=== PATIENT | male | born 1950 | race Caucasian/White ===

== ENCOUNTER 2017-04-19 12:03 | Inpatient (IN) ==
[2017-04-19] MEDS ORDERED: ASPIRIN PO STA (12:12)
[2017-04-19] MEDS ORDERED: CARDIZEM ONE (12:12)
[2017-04-19] MEDS ORDERED: NS 1,000 ML ONE (12:13)
[2017-04-19] MEDS ORDERED: NS 1,000 ML IV ONE ×2 (12:13→15:38)
[2017-04-19] MEDS ORDERED: CARDIZEM IV ONE (12:13)
[2017-04-19] MEDS ORDERED: NEO-SYNEPHRINE IV ONE (12:20)
--- NOTE | 2017-04-19 12:27 | EKG Report ---
Test Performed on : 04/19/2017 12:07:54 PM Test Reason : SOB/CP Blood Pressure : / mmHG Vent. Rate : 144 BPM Atrial Rate : 136 BPM P-R Int : 000 ms QRS Dur : 098 ms QT Int : 348 ms P-R-T Axes : 000 055 219 degrees QTc Int : 538 ms Atrial fibrillation. with rapid ventricular response. ST \T\ T wave abnormality, consider inferolateral ischemia Abnormal ECG When compared with ECG of 31-DEC-2015 06:35, Atrial fibrillation. has replaced Sinus rhythm. Vent. rate has increased BY [address] no longer depressed in Inferior leads ST no longer depressed in Anterior leads Unconfirmed Result
[2017-04-19 12:47] LABS: ALBUMIN 3.8 g/dL (3.5-5.0); CALCIUM 9.1 mg/dL (8.8-10.2); MAGNESIUM 1.7 mg/dL (1.5-2.7); POTASSIUM 4.4 mmol/L (3.5-5.1); TOTAL BILIRUBIN 1.1 mg/dL (0.20-1.00); TOTAL PROTEIN 7.8 g/dL (6.3-8.3)
[2017-04-19 12:51] LABS: INR 1.08 (0.86-1.15); PROTIME 14.3 Seconds (12.1-15.5); PTT PL 33.6 Seconds (22.6-43.9)
[2017-04-19] MEDS ORDERED: NEO-SYNEPHRINE 50 MG in NS 250 ML IV SCH ×2 (13:00→17:45)
[2017-04-19 13:08] LABS: BASO% 0.2 % (0.0-0.8); EOS# 0.08 X1000 (0.0-0.7); EOS% 0.4 % (0.0-10.0); HEMOGLOBIN 14.8 g/dL (14.0-18.0); IMM GRAN# 0.06 X1000 (0.0-0.04); IMM GRAN% 0.3 % (0.0-0.5); LYMPH# 0.98 X1000 (1.2-3.4); MANUAL DIFF NEEDED? YES; MCH 29.6 PG (27-31); MCHC 33.6 g/dL (33-37); MONO# 0.86 X1000 (0.11-0.59); MONO% 4.4 % (1.7-9.3); MPV 9.9 FL (7.4-10.4); NEUT% 89.7 % (42.2-75.2); PLT 226 X1000 (130-400)
--- NOTE | 2017-04-19 13:40 | Diag Imaging Result Doc PS360 ---
CHEST-PORTABLE - 04/19/2017 INDICATION: CP TECHNIQUE: COMPARISON: 12/30/2015 FINDINGS: There are new sternotomy changes. There is ill-defined infiltrate projecting over the cardiac apex probably in the left lower lobe. This is alveolar infiltrate. The right lung is clear. No pneumothorax or pleural effusion. Heart size and pulmonary vascularity is grossly normal. IMPRESSION: Left lower lobe infiltrate suggesting pneumonia. Recommend treatment and follow-up until clear. Electronically signed by Neil Hopkins 04/19/2017 1:38 PM
[2017-04-19 13:42] LABS: LYMPHS 5 % (21-51); MONO 1 % (1-9)
[2017-04-19] MEDS ORDERED: VANCOMYCIN IV PER PHARMACY MISC SCH (13:45)
[2017-04-19] MEDS ORDERED: ZOFRAN IV PRN (13:45)
[2017-04-19] MEDS ORDERED: TYLENOL PO PRN ×2 (13:45)
[2017-04-19] MEDS ORDERED: LOVENOX SUBQ SCH (13:45)
[2017-04-19] MEDS: PROTONIX IV SCH (14:15)
[2017-04-19] MEDS: ROCEPHIN 1 GM/NS 1 GM/50 ML IVPB IV SCH (14:16)
[2017-04-19] MEDS: SODIUM CHLORIDE 0.9% INJ SCH (14:16)
[2017-04-19] MEDS: NS 1,000 ML IV SCH (14:18)
[2017-04-19] MEDS ORDERED: VANCOMYCIN 2,000 MG in NS 500 ML IV ONE (15:00)
[2017-04-19] MEDS ORDERED: LOVENOX SUBQ ONE (16:00)
[2017-04-19] MEDS: HUMALOG DOSE (PARKWAY) SUBQ SCH ×2 (16:50→20:12)
--- NOTE | 2017-04-19 16:52 | CONSULTATION ---
DATE OF CONSULTATION: 04/19/2017 INDICATION FOR THE CONSULTATION: Shortness of breath. HISTORY OF PRESENT ILLNESS: Mr. Newby is a 66-year-old white male with a history of coronary disease and previous bypass. He presented for evaluation of shortness of breath and chest discomfort. This has been over the last 2-3 days or so. The patient is extremely poor historian. He continues to smoke. In addition, he has reported some issues with fluttering in his chest. He has not had any exertional discomfort. All of his symptoms seem to occur at rest as he is a very sedentary patient. He has no bleeding issues. He has no falling issues as long as he is using his cane and walker. PAST MEDICAL HISTORY: Significant for. 1. Coronary disease with history of coronary bypass grafting. This was performed in February 2016 and resulted in a EMMANUEL to the LAD and a vein graft to the PDA. 2. Hypertension. 3. Hyperlipidemia. 4. COPD. 5. Diabetes. 6. Continued tobacco abuse. SOCIAL HISTORY: Continued tobacco abuse. No current alcohol. FAMILY HISTORY: Hypertension. REVIEW OF SYSTEMS: Ten system review of systems is negative except for those mentioned in HPI. PHYSICAL EXAMINATION: Vital signs: He is afebrile. His heart rate is in the 90s to low 100s. Blood pressure 115/72. Generally: No acute distress. HEENT: Oropharynx is moist. Poor dentition. Eye examination shows pink conjunctivae. White sclerae. Neck: Examination shows no obvious thyromegaly or thyroid tenderness. Cardiovascular: He is in irregular rate and rhythm. No murmurs. No S3. He has no lower extremity edema. Chest: Clear to auscultation bilaterally. He has no increased work of breathing. Abdomen: Soft, nontender, nondistended. He has no obvious organomegaly. Skin Exam: Warm and dry throughout without any rashes. Neurological: He seems to be moving all extremities well. Cranial nerves 2-12 are intact without any sensation deficits. PERTINENT DATA: EKG on presentation shows atrial fibrillation, rapid ventricular response, rate of 144 beats per minute. His chest x-ray is suggestive of a left lower lobe infiltrate concerning for possible pneumonia. Laboratory data shows a white count of 19.6, hematocrit 44, platelet count 226,000. INR 1.08. D-dimer 1.10. Sodium 131, potassium 4.4, BUN 26, creatinine is 1.5. ProBNP 3674. Magnesium level 1.7. Cardiac enzymes are negative times multiple sets. ASSESSMENT: 1. Chest discomfort. 2. Atrial fibrillation. PLAN: I would proceed with myocardial perfusion imaging in the morning. If that is unremarkable then likely the next day I would proceed with ANA MARÍA cardioversion. I will make sure the patient is on treatment dose anticoagulation for his atrial fibrillation. Risks, benefits, and alternatives procedure have been explained to the patient and he agrees to proceed. cc: Ronaldo Elizabeth MD
[2017-04-19] MEDS ORDERED: NEO-SYNEPHRINE 50 MG in NS 250 ML IV PRN (17:57)
--- NOTE | 2017-04-19 19:25 | HISTORY AND PHYSICAL ---
PRIMARY CARE PHYSICIAN: Dr. Robin Giordano. CHIEF COMPLAINT: Chest pain. HISTORY OF PRESENTING ILLNESS: This is a 66-year-old male who presents to [facility] with complaints of chest pain. States he is on home O2 at 4 L via nasal cannula. States that when he woke up this morning he felt worse, was also having shortness of breath. Workup in the emergency room showed a white blood cell count of 19.60, a D- dimer of 1.10, a creatinine of 1.5, sodium of 131, had a plasma lactate level of 3.0, a EKG that showed atrial fibrillation with RVR at 144, a chest x-ray that showed a left lower lobe infiltrate suggesting pneumonia. So he was admitted to the intensive care unit for further evaluation and treatment. PAST MEDICAL HISTORY: Coronary artery disease, hypertension, COPD, diabetes type 2, gout and CHF. PAST SURGICAL HISTORY: Of a triple bypass in 2014. FAMILY HISTORY: A mother with CHF. SOCIAL HISTORY: He has a 4 pack per day history of smoking. States now he is down to 4 cigarettes per day. Denies any ETOH or illicit drug use and is currently living alone and disabled. ALLERGIES: He has no known drug allergies. HOME MEDICATIONS: Will have to verify his home medications and restart as appropriate. LABORATORY DATA: Showed a white blood cell count of 19.60, hemoglobin 14.8, hematocrit 44.0, platelets 226,000. PT and INR 14.3 and 1.08 with a D-dimer of 1.10. Sodium 131, potassium 4.4, chloride 95, CO2 20, BUN of 26, creatinine 1.5, glucose 283, magnesium 1.7. ProBNP of 3674 with a plasma lactate of 3. Cardiac enzymes x2 sets have been negative. Chest x-ray showed a left lower lobe infiltrate suggesting pneumonia. EKG on arrival showed atrial fibrillation with RVR at 144. REVIEW OF SYSTEMS: He denied any fever, chills, blurred vision. He was positive for some generalized muscle weakness, chronic shortness of breath and back pain. Denied any coughing. He did have some left-sided chest pain. Denied any abdominal pain, constipation, diarrhea, burning or hurting with urination. PHYSICAL EXAMINATION: VITAL SIGNS: On arrival had a temperature of 99.2 degrees, pulse of 150, respirations 13, blood pressure 140/89, saturating 89% on room air. GENERAL: This is a 66-year-old male lying in the bed and answers questions appropriately. HEENT: Normocephalic and atraumatic. Pupils are equal, round, reactive to light. NECK: Supple. LUNGS: With diminished breath sounds to lower bases otherwise equal lung expansion and chest wall movement. HEART: Irregular rate and rhythm. No murmurs, rubs, or gallops. ABDOMEN: Soft, nontender, nondistended. Bowel sounds are present x4 quadrants. EXTREMITIES: No clubbing, cyanosis, or edema. NEUROLOGICAL: The cranial nerves 2-12 are grossly intact. ASSESSMENT: 1. Atrial fibrillation with rapid ventricular response. 2. Left lower lobe pneumonia. 3. Acute kidney injury. 4. Elevated D-dimer. 5. Dehydration. PLAN: He was admitted to the intensive care unit. It is noted in the emergency room he was given Cardizem 10 mg IV x1, normal saline bolus x1. He was given a now dose of vancomycin and Rocephin in the emergency room. We will place him on a healthy heart diet. We will check an echocardiogram. Consult cardiology. Continue his serial cardiac enzymes. Place on normal saline at 75 mL an hour, Protonix 40 mg IV q.24, again Rocephin 1 gram IV q.24, vancomycin per pharmacy protocol. Recheck CBC, BMP in the a.m. Will also place on DuoNeb q.4-6 hours p.r.n. Once we recheck his CMP in the a.m. creatinine has improved we may be able to do a pulmonary arteriogram otherwise will check a V/Q scan to rule out any PE. Dictated by ADAN Berry for Theo Coleman MD cc: ADAN Berry MD
[2017-04-19] MEDS ORDERED: AMBIEN PO PRN (21:00)
[2017-04-20] MEDS: NS 1,000 ML IV SCH ×2 (05:00→23:25)
[2017-04-20 05:45] LABS: MANUAL DIFF NEEDED? NO
[2017-04-20 06:01] LABS: BASO% 0.2 % (0.0-0.8); EOS# 0.15 X1000 (0.0-0.7); EOS% 1.4 % (0.0-10.0); HEMATOCRIT 35.4 % (42.0-52.0); HEMOGLOBIN 11.7 g/dL (14.0-18.0); IMM GRAN# 0.03 X1000 (0.0-0.04); IMM GRAN% 0.3 % (0.0-0.5); LYMPH# 1.75 X1000 (1.2-3.4); LYMPH% 16.6 % (20.5-51.1); MCH 29.7 PG (27-31); MCHC 33.1 g/dL (33-37); MCV 89.8 FL (81-99); MONO# 0.58 X1000 (0.11-0.59); MONO% 5.5 % (1.7-9.3); MPV 10.3 FL (7.4-10.4); PLT 155 X1000 (130-400); RBC 3.94 XMIL (4.7-6.1)
[2017-04-20 06:19] LABS: AGAP 9; BUN 26 mg/dL (8-22); CALCIUM 7.8 mg/dL (8.8-10.2); CHLORIDE 102 mmol/L (98-107); COSMO 268; MAGNESIUM 1.8 mg/dL (1.5-2.7); SODIUM 131 mmol/L (136-145); TCO2 20 mmol/L (25-35)
[2017-04-20] MEDS: HUMALOG DOSE (PARKWAY) SUBQ SCH ×4 (06:48→20:05)
[2017-04-20] MEDS: ZOFRAN IV PRN (14:29)
[2017-04-20] MEDS ORDERED: LEXISCAN ONE (14:39)
[2017-04-20] MEDS ORDERED: VANCOMYCIN 1,500 MG in NS 250 ML IV SCH (15:00)
[2017-04-20] MEDS: ROCEPHIN 1 GM/NS 1 GM/50 ML IVPB IV SCH (15:30)
--- NOTE | 2017-04-20 15:47 | PROGRESS NOTE ---
DATE: 04/20/2017 SUBJECTIVE: Patient has no complaints. He denies chest pain, shortness of breath, palpitations. OBJECTIVE: Vital Signs: Blood pressure is 132/71 with a heart rate of 86, respirations are 20, temperature is 98.6 degrees with O2 saturations of 98-100% on 2 L nasal cannula 8. HEENT: Head is normocephalic, atraumatic. Pupils equal, round, react to light. EOMs are intact. Sclerae anicteric. Mucous membranes are moist. Neck: Supple. Trachea midline. Cardiovascular: Irregularly irregular rate and rhythm. S1, S2 appreciated. Pulmonary: Breath sounds are clear with no increased work of breathing noted. Gastrointestinal: Abdomen is soft, nontender, nondistended. Bowel sounds in all 4 quadrants. Extremities: No clubbing, cyanosis, or edema. Calves are nontender. Pulses are palpable x4. Neurologic: He is alert and oriented x3. Cranial nerves 2-12 grossly intact. LABS: WBC is 10.5 with hemoglobin 11.7, hematocrit 35.4 and platelets of 155,000. Sodium is 131, potassium 4, BUN 26, creatinine 1.2 with glucose ranging from 107-110. Microbiology. Blood cultures are pending. ASSESSMENT AND PLAN: 1. Atrial fibrillation. 2. Left lower lobe pneumonia. 3. Acute kidney injury. 4. Elevated D-dimer. 5. Dehydration. 6. Diabetes mellitus. 7. Hypertension. We will continue with the current regimen. He is NPO for a Lexiscan today. Further treatment pending results. Dictated by ADAN Washington for Theo Coleman MD cc: ADAN Washington MD
[2017-04-20] MEDS: PROTONIX IV SCH (15:51)
[2017-04-20] MEDS ORDERED: LOVENOX SUBQ SCH (16:00)
--- NOTE | 2017-04-20 16:15 | PROGRESS NOTE ---
DATE: 04/20/2017 SUBJECTIVE: Patient continues without chest discomfort or dyspnea. OBJECTIVE: Vital Signs: Blood pressure 131/72, heart rate 69 with ECG monitor showing atrial fibrillation. Oxygen saturation 98% on 4 L per nasal cannula. Chest: Clear to auscultation bilaterally. Cardiac Examination: Reveals an irregular rate and rhythm without appreciable murmur or gallop. There is no evidence of peripheral edema. LABORATORY DATA: Initial troponin 0.02, follow-up troponin 0.022. Lexiscan sestamibi study is pending. IMPRESSION: 1. Chest discomfort. 2. Atrial fibrillation, duration unknown. 3. Atherosclerotic coronary disease with prior coronary bypass grafting one year ago. 4. Chronic obstructive pulmonary disease. 5. Hypertension. 6. Hyperlipidemia. 7. Diabetes mellitus. 8. Continued cigarette use. RECOMMENDATIONS: 1. Reasonable transfer to telemetry. 2. Follow-up Lexiscan sestamibi study. 3. If Lexiscan sestamibi study is negative, tentatively plan for ANA MARÍA cardioversion in a.m. tomorrow. 4. Smoking cessation strongly advised. cc: Zohaib Sewell MD
[2017-04-20] MEDS ORDERED: ZOFRAN ODT PO PRN (16:53)
[2017-04-20] MEDS ORDERED: NEURONTIN PO PRN (16:53)
[2017-04-20] MEDS ORDERED: VENTOLIN HFA INH SCH (17:00)
[2017-04-20] MEDS: NORCO-5 PO PRN (20:06)
[2017-04-21] MEDS: NORCO-5 PO PRN ×2 (02:32→21:37)
[2017-04-21] MEDS: HUMALOG DOSE (PARKWAY) SUBQ SCH ×4 (06:00→22:38)
[2017-04-21] MEDS: DUONEB (A & A) INH PRN ×2 (08:07→21:26)
[2017-04-21] MEDS: ASPIRIN PO SCH (08:54)
[2017-04-21] MEDS ORDERED: PROTONIX PO SCH (09:00)
--- NOTE | 2017-04-21 09:56 | Diag Imaging Result Document ---
PROCEDURE NAME: MYOCARDIAL PERF SCAN, STR/REST - 04/20/2017 PROCEDURE: Lexiscan Cardiolite stress test. DESCRIPTION OF PROCEDURE IN DETAIL: Lexiscan by Dr. Gallegos. Please see Lexiscan dictated separately. Following Lexiscan infusion, Cardiolite was injected. Total of 11.4 mCi of Cardiolite was injected for the rest phase; 33 millicuries of Cardiolite was injected for the stress phase. Gated SPECT images were obtained in standard views. Images revealed significant chest wall diaphragmatic attenuation. There is severe grade, large-sized, fixed defect in the inferior wall diagnostic of infarct. In addition, there is fixed defect in the inferolateral wall diagnostic of infarct. There is no evidence of ischemia. Left ventricular ejection fraction 43%. CONCLUSIONS: 1. There is no evidence of ischemia. 2. Severe grade large size fixed defect in the inferior wall and in the inferolateral wall diagnostic of infarct or scar. There is no ischemia. 3. Left ventricular ejection fraction by gated SPECT was 43%. Inferior wall hypokinesis. cc: MD Ronaldo Marte MD
[2017-04-21] MEDS ORDERED: DIPRIVAN 1% ONE (10:02)
[2017-04-21] MEDS ORDERED: XYLOCAINE-MPF 2% ONE (10:02)
[2017-04-21] MEDS ORDERED: XYLOCAINE 4% TOPICAL SOLUTION ONE (10:05)
[2017-04-21] MEDS ORDERED: ANESTHESIA PB SET 88 IN 5742 ONE (10:05)
[2017-04-21] MEDS ORDERED: NS 1,000 ML ONE (10:06)
--- NOTE | 2017-04-21 10:25 | ECHO REPORT ---
ORDER DATE: 04/19/2017 ECHOCARDIOGRAPHIC MEASUREMENTS: 1. Interventricular septum 1.0. 2. Left ventricular posterior wall 1.2. 3. Diastolic diameter 5. 4. Left atrium 3. 5. Aorta 3.6. INTERPRETATION/FINDINGS: 1. Normal left ventricular cavity size. Estimated ejection fraction of 50% to 55%. 2. Aortic valve leaflets are trileaflet. 3. Mitral valve was normal. 4. Tricuspid valve was normal. 5. There is biatrial enlargement. 6. Peak velocity across the aortic valve less than 2 m/sec. There is no aortic stenosis or regurgitation. 7. There is mild mitral regurgitation. 8. There is tricuspid regurgitation. Peak velocity across the tricuspid valve was 2.2 m/sec. 9. There is no pericardial effusion or obvious intracardiac mass or thrombus seen. cc: MD Theo Marte MD
--- NOTE | 2017-04-21 10:53 | EKG Report ---
Test Performed on : 04/21/2017 08:27:56 AM Test Reason : a.fib protocol Blood Pressure : / mmHG Vent. Rate : 081 BPM Atrial Rate : 286 BPM P-R Int : 000 ms QRS Dur : 100 ms QT Int : 388 ms P-R-T Axes : 074 027 073 degrees QTc Int : 450 ms Atrial flutter. with variable AV block. Nonspecific ST and T wave abnormality Abnormal ECG When compared with ECG of 19-APR-2017 12:07, Atrial flutter. has replaced Atrial fibrillation. Vent. rate has decreased BY 63 BPM T wave inversion no longer evident in Inferior leads T wave inversion no longer evident in Lateral leads Confirmed by Hunter Gallegos MD ([id number]) on 04/27/2017 10:27:29 PM
--- NOTE | 2017-04-21 11:26 | OPERATIVE NOTE ---
PROCEDURE DATE: PROCEDURE PERFORMED: Cardioversion. DESCRIPTION OF PROCEDURE: Please see detailed ANA MARÍA record. The patient underwent a transesophageal echocardiogram. He was brought to the cardiac catheterization laboratory. After informed consent was obtained, the ANA MARÍA was performed. It was decided to proceed with cardioversion. Please see detailed anesthesia records. The patient was in atrial flutter/fibrillation, was converted to sinus rhythm with a single shock of 50 joules biphasic synchronized shock. Patient was in sinus rhythm. There were no complications. cc: Marcello Benjamin MD
[2017-04-21] MEDS: NS 1,000 ML IV SCH (11:44)
[2017-04-21 12:25] LABS: HEMATOCRIT 37.7 % (42.0-52.0); HEMOGLOBIN 12.4 g/dL (14.0-18.0); MCH 30.6 PG (27-31); MCHC 32.9 g/dL (33-37); MCV 93.1 FL (81-99); MPV 10.1 FL (7.4-10.4); RBC 4.05 XMIL (4.7-6.1)
--- NOTE | 2017-04-21 12:41 | Diag Imaging Result Doc PS360 ---
CHEST-2 VIEWS - 04/21/2017 INDICATION: pna TECHNIQUE: COMPARISON: 04/19/2017 FINDINGS: Stable sternotomy changes. Stable borderline cardiomegaly. Stable dense consolidation in the left lower lobe. There is some worsening ill-defined infiltrate in both lung bases as well as pulmonary vascular congestion. There is also some new fluid in the right minor fissure. IMPRESSION: Worsening from prior, mainly in the pulmonary vascular congestion and pleural fluid. On this exam, the left lower lobe opacity appears masslike. Chest CT is recommended. Preferably with intravenous contrast. Electronically signed by Neil Hopkins 04/21/2017 12:39 PM
[2017-04-21 12:46] LABS: AGAP 14; ALBUMIN 3.2 g/dL (3.5-5.0); ALKALINE PHOSPHATASE 148 U/L (32-122); BUN 19 mg/dL (8-22); CHLORIDE 98 mmol/L (98-107); COSMO 268; GOT 13 U/L (10-34); GPT 9 U/L (10-44); MAGNESIUM 1.8 mg/dL (1.5-2.7); POTASSIUM 4.2 mmol/L (3.5-5.1); SODIUM 132 mmol/L (136-145); TCO2 20 mmol/L (25-35); TOTAL BILIRUBIN 0.75 mg/dL (0.20-1.00)
[2017-04-21] MEDS ORDERED: VITAMIN D PO SCH (13:30)
--- NOTE | 2017-04-21 13:31 | PROGRESS NOTE ---
DATE: 04/21/2017 SUBJECTIVE: Patient without any new complaints this morning. States overall he is feeling okay. PHYSICAL EXAMINATION: Temperature 97 degrees, pulse 93, respiratory rate 18, BP 171/90, sat 94% on room air.General: Patient is awake, alert, currently in no real respiratory distress. Neck: Supple. CV: Irregular rhythm but rate controlled. Abdomen: Soft. Extremities: Moves all extremities. Chest: Clear. ASSESSMENT: 1. Atrial fibrillation. Atrial flutter. 2. Left lower lobe pneumonia stable. 3. Volume depletion resolved. Patient is planned to be transferred to [facility] this morning to have a ANA MARÍA and we will follow from there. He certainly may require cardioversion after that. cc: Theo Coleman MD
[2017-04-21] MEDS ORDERED: SODIUM CHLORIDE 0.9% 10 ML ONE (14:07)
[2017-04-21] MEDS: PROTONIX IV SCH (14:13)
[2017-04-21] MEDS: SODIUM CHLORIDE 0.9% INJ SCH (14:13)
[2017-04-21] MEDS: ROCEPHIN 1 GM/NS 1 GM/50 ML IVPB IV SCH (14:13)
--- NOTE | 2017-04-21 14:28 | Diag Imaging Result Doc PS360 ---
CT THORAX W/CONTRAST - 04/21/2017 INDICATION: lung mass/pneumonia TECHNIQUE: A CT dose reduction protocol was used. COMPARISON: Prior chest x-rays FINDINGS: There is irregular infiltrate in both lower lobes left greater than right. No convincing mass. There are small bilateral pleural effusions with some fluid in the fissures. There are several enlarged mediastinal lymph nodes diffusely. This involves the paratracheal, precarinal, subcarinal, and AP window spaces. The hilum are also involved bilaterally. Heart size is top normal with no pericardial effusion. There are CABG changes. There is significant vascular disease of the aorta without aneurysm formation. There is probably moderate to severe stenosis of the superior mesenteric artery, with over 50% narrowing. There is advanced COPD in the lungs. There is some interstitial opacity bilaterally compatible with interstitial pulmonary edema. There are moderate degenerative changes of the spine. No acute or suspicious bony lesion. IMPRESSION: 1. Lower lobe infiltrates left greater than right but no suspicious masses. The patible with pneumonia or aspiration. 2. Advanced COPD. 3. Cardiomegaly. Probable interstitial pulmonary edema. Small pleural effusions. 4. Superior mesenteric artery stenosis. 5. Indeterminate diffuse mediastinal adenopathy. Electronically signed by Neil Hopkins 04/21/2017 2:25 PM
--- NOTE | 2017-04-21 15:05 | EKG Report ---
Test Performed on : 04/21/2017 2:36:13 PM Test Reason : afib, s/p DCCV Blood Pressure : / mmHG Vent. Rate : 105 BPM Atrial Rate : 105 BPM P-R Int : 170 ms QRS Dur : 088 ms QT Int : 372 ms P-R-T Axes : 063 032 -06 degrees QTc Int : 491 ms Sinus tachycardia. Inferior infarct , age undetermined Abnormal ECG When compared with ECG of 21-APR-2017 08:27, (Unconfirmed) Sinus rhythm. has replaced Atrial flutter. Nonspecific T wave abnormality now evident in Inferior leads Nonspecific T wave abnormality, improved in Lateral leads Confirmed by Ministerio MAJOR, Eulalia Damian ([id number]) on 04/22/2017 10:35:16 AM
[2017-04-21] MEDS ORDERED: VANCOMYCIN 1,500 MG in NS 250 ML IV SCH (16:00)
[2017-04-21] MEDS: XARELTO PO SCH (17:05)
[2017-04-21] MEDS: MIRALAX PO SCH (21:37)
[2017-04-21] MEDS: ZOSYN 3.375 GM/NS 3.375 GM/50 ML IVPB IV SCH (21:38)
[2017-04-21] MEDS: DESYREL PO PRN ×2 (22:00→22:01)
[2017-04-22] MEDS: ZOSYN 3.375 GM/NS 3.375 GM/50 ML IVPB IV SCH ×4 (03:30→22:10)
[2017-04-22] MEDS: NS 1,000 ML IV SCH ×2 (05:05→08:49)
[2017-04-22] MEDS: DUONEB (A & A) INH PRN ×6 (05:21→23:06)
[2017-04-22] MEDS: HUMALOG DOSE (PARKWAY) SUBQ SCH ×4 (06:33→22:12)
[2017-04-22 06:36] LABS: HEMATOCRIT 34.1 % (42.0-52.0); HEMOGLOBIN 11.3 g/dL (14.0-18.0); MCH 30.9 PG (27-31); MCHC 33.1 g/dL (33-37); MCV 93.2 FL (81-99); MPV 10.1 FL (7.4-10.4); RBC 3.66 XMIL (4.7-6.1)
[2017-04-22 06:46] LABS: AGAP 18; BUN 16 mg/dL (8-22); CALCIUM 8.3 mg/dL (8.8-10.2); CHLORIDE 98 mmol/L (98-107); COSMO 277; POTASSIUM 3.8 mmol/L (3.5-5.1); SODIUM 137 mmol/L (136-145); TCO2 21 mmol/L (25-35)
[2017-04-22] MEDS: MIRALAX PO SCH ×2 (08:43→22:10)
[2017-04-22] MEDS: ASPIRIN PO SCH (08:43)
[2017-04-22] MEDS ORDERED: LASIX IV ONE (09:34)
--- NOTE | 2017-04-22 09:57 | PROGRESS NOTE ---
DATE: 04/22/2017 SUBJECTIVE: Mr. Newby is doing well this morning. He underwent ANA MARÍA cardioversion yesterday successfully. OBJECTIVE: Vital Signs: On physical examination, he is afebrile. His heart rate is 96. Blood pressure is 150/74. General: No acute distress. Cardiovascular: He is in a regular rate and rhythm. He has no obvious murmurs. He has no S3. He has no lower extremity edema. Chest: Exam is relatively clear to auscultation bilaterally. He has no increased work of breathing. Abdomen: Soft, nontender, nondistended. He has no obvious organomegaly. Skin Exam: Warm and dry throughout. PERTINENT DATA: Lab hua, his white count is 8.7, hematocrit is 34, platelet count 157. Sodium 137, potassium 3.8, BUN 16, creatinine is 1. Chest CT yesterday demonstrated a lower lobe infiltrate bilaterally, but left larger than right, suggestive of pneumonia or possible aspiration. In addition there was advanced COPD and probable pulmonary edema with small pleural effusions. ASSESSMENT: 1. Atrial fibrillation. 2. Possible pneumonia. 3. Suggestive of heart failure. PLAN: We will give him a dose of Lasix 40 mg IV today. He does seem to have some evidence for pulmonary edema on his examination, and he is fluid positive over the last couple of days to the tune of around 2 L. He does have suggestion of pneumonia. I will defer antibiotic treatment to the primary team. cc: Ronaldo Elizabeth MD
--- NOTE | 2017-04-22 10:07 | Transesophageal Echocardiogram ---
DATE: 04/20/2017 PROCEDURE: This is a transesophageal echocardiogram prior to cardioversion. DIAGNOSIS: Atrial flutter/fibrillation. DESCRIPTION OF PROCEDURE IN DETAIL: Patient was brought to the cardiac catheterization laboratory. Informed consent was obtained. The patient was anesthetized with Versed and propofol. Please see detailed anesthesia records. The patient's oropharynx was anesthetized using lidocaine swish and swallow and Cetacaine spray. A transesophageal probe was easily passed through the esophagus, and ultrasound pictures were obtained. There were no complications. FINDINGS: 1. Normal left ventricular cavity size. Estimated ejection fraction of 55% to 60%. 2. Left atrium was normal. Left atrial appendage was normal. 3. Right atrium was normal. 4. Mitral valve was normal. 5. Tricuspid valve was normal. 6. Pulmonic valve was normal. 7. Aortic valve leaflets were trileaflet, mildly sclerosed. 8. There is no aortic stenosis. 9. There is no aortic regurgitation. 10. There is mild mitral regurgitation. 11. Mild tricuspid regurgitation. 12. The ascending aorta was normal. Descending aorta had layered plaque. 13. There is no obvious intracardiac mass or thrombus seen. RECOMMENDATION: Proceed with cardioversion. cc: MD Zohaib Marte MD
[2017-04-22] MEDS ORDERED: XYLOCAINE-MPF 2% ONE (12:10)
[2017-04-22] MEDS ORDERED: QUELICIN (DOSE) ONE ×2 (12:10→12:11)
[2017-04-22] MEDS ORDERED: DIPRIVAN 1% ONE (12:11)
[2017-04-22] MEDS ORDERED: FENTANYL ONE (12:12)
[2017-04-22] MEDS ORDERED: NORCURON ONE (12:16)
[2017-04-22] MEDS ORDERED: STERILE WATER INJ. ONE (12:16)
--- NOTE | 2017-04-22 13:12 | PROGRESS NOTE ---
DATE: 04/22/2017 SUBJECTIVE: The patient is resting comfortably in bed. He states that he wants to go home. He does complain of coughing up yellow sputum. OBJECTIVE: Vital Signs: Temperature 98 degrees, blood pressure 150/72, heart rate 96, respirations 17, O2 saturations 93% on 4 L nasal cannula. General: This is an elderly male, lying in bed in no acute distress. Head: Normocephalic, atraumatic. Lungs: Lungs clear to auscultation bilaterally. Abdomen: Positive bowel sounds. Soft, nontender. Extremities: No edema. No cyanosis. LABS: Reviewed. ASSESSMENT AND PLAN: 1. Bilateral lobe pneumonia. Continue with intravenous antibiotic therapy. We will consult infectious disease for further recommendations. 2. Mild pulmonary edema. The patient was given Lasix today. Will monitor the patient's volume status closely. 3. Superior mesenteric artery stenosis. Aware. 4. Diffuse mediastinal adenopathy. The patient will likely require a repeat CT once his pneumonia has cleared up. Will refer the patient to a college and career counselor for outpatient follow up. 5. Atrial fibrillation status post cardioversion. The patient is in normal sinus rhythm. Continue on Xarelto. 6. Diabetes mellitus type 2. Continue on sliding scale insulin. cc: Jaqui Kaur MD
[2017-04-22] MEDS ORDERED: ROBINUL ONE ×2 (13:31→13:43)
[2017-04-22] MEDS: PROTONIX IV SCH (13:40)
[2017-04-22] MEDS: SODIUM CHLORIDE 0.9% INJ SCH (13:41)
[2017-04-22] MEDS ORDERED: NEOSTIGMINE ONE (13:43)
[2017-04-22] MEDS: XARELTO PO SCH (16:27)
[2017-04-22] MEDS: VANCOMYCIN 1,800 MG in NS 250 ML IV SCH (18:05)
--- NOTE | 2017-04-22 21:29 | CONSULTATION ---
DATE OF CONSULTATION: 04/22/2017 CONCLUSION: The patient has bibasilar infiltrates. I think this could be due to pneumonia. The patient earlier had atrial fibrillation and became very short of breath. Possibly he had an episode of aspiration. I think it is also possible that the bibasilar infiltrates could in part be due to pulmonary venous congestion which might have occurred when the patient went into atrial fibrillation. RECOMMENDATIONS: I have electronically sent a prescription for Augmentin 875 mg p.o. every 12 hours with food for 15 days. It has been sent to the [facility] which is the drugstore the patient put down as the one he uses. I have requested also that the patient see me in the office in 2 weeks at which time I will examine him and at that time I can send him for another CT scan rather than a chest x-ray because in addition to bibasilar infiltrates, the CT scan found that there was some mediastinal adenopathy. This could have been reactive to the patient's pneumonia. DISCUSSION: The patient was admitted to the hospital with acute onset of dyspnea and an irregular heart rate. He was found to be in atrial fibrillation and eventually underwent cardioversion which was successful. Now the patient says he is feeling good. His laboratory studies today show a CBC with a white count of 8690, hemoglobin 11.3, and platelet count 157,000. Creatinine is 1. GFR is greater than 60. Alkaline phosphatase is 148. His IgA and IgG levels are normal. CT scan shows left greater than right bibasilar infiltrates and mediastinal adenopathy. Sputum Gram stain showed Gram-positive cocci. Culture is pending. Blood cultures are negative. As mentioned above, the patient was found to be in atrial fibrillation and he has been successfully cardioverted. PAST MEDICAL HISTORY/REVIEW OF SYSTEMS: Eyes and ears: He denies difficulty hearing or seeing. Neck: No stiffness. Respiratory: No dyspnea other than when the patient was in atrial fibrillation. Cardiac: No chest pains or palpitations. GI: No nausea, vomiting, or diarrhea. Genitourinary: No dysuria or flank pain. GI: No nausea, vomiting, or diarrhea. Bones, joints, muscles: No joint swelling or muscle aches. Neurologic: No seizures or motor or sensory loss. Integument: No rash. Endocrine: Patient does have diabetes, but not thyroid disease. The remainder of the patient's review of systems was completed and was negative. PREVIOUS HOSPITALIZATIONS AND OPERATIONS: He has had coronary artery bypass grafting. MEDICAL DISEASES: Positive for diabetes mellitus, coronary artery disease, hypertension, COPD and cigarette smoking. Hyperlipidemia. INFECTIOUS DISEASE HISTORY: Positive for pneumonia. Negative for UTI. SOCIAL HISTORY[place] . He smokes cigarettes. He is retired and he is disabled due to back trauma. The patient does not have any pets. ALLERGIES: He has no known drug allergies. HOME MEDICATIONS: Potassium. Vitamin D. Zofran. Neurontin. Lasix. Zocor. Ferrous sulfate. Lisinopril. Protonix. Insulin. Albuterol inhaler. Trazodone. Ranexa. FAMILY HISTORY: Positive for myocardial infarction, cancer, stroke, diabetes mellitus and COPD. PHYSICAL EXAMINATION: Vital Signs: Temperature is 98.1 degrees, pulse 89, respirations 14, blood pressure 155/72. The patient's weight is listed as 170 pounds. General: This is a healthy- appearing, middle-aged male. He is in no acute distress. Head, eyes, ears, nose, and throat: He can hear my spoken words and see near objects. No drainage noted from the nose or ears. The patient is edentulous. There are no white patches on his tongue. Neck: No meningismus. Thorax: There is slight increased AP diameter of the chest. Lungs: There were bibasilar rales. Cardiovascular: Heart rate is regular. Peripheral pulses are palpable. Abdomen: Soft and nontender. Neurologic: Patient is alert. He can move his extremities. There is no tremor. His sensation is intact to touch. His memory, as regarding his medical history is intact also. Integument: I did not notice any rashes. Thank you for the consult. cc: Adam Nj MD
[2017-04-23] MEDS: ZOSYN 3.375 GM/NS 3.375 GM/50 ML IVPB IV SCH ×4 (02:34→21:08)
[2017-04-23] MEDS: DUONEB (A & A) INH PRN ×6 (03:59→22:35)
[2017-04-23] MEDS: HUMALOG DOSE (PARKWAY) SUBQ SCH ×4 (06:08→21:12)
--- NOTE | 2017-04-23 06:42 | EKG Report ---
Test Performed on : 04/23/2017 06:29:08 AM Test Reason : afib Blood Pressure : / mmHG Vent. Rate : 090 BPM Atrial Rate : 090 BPM P-R Int : 166 ms QRS Dur : 094 ms QT Int : 412 ms P-R-T Axes : 071 023 058 degrees QTc Int : 504 ms Normal sinus rhythm. Nonspecific ST and T wave abnormality Prolonged QT Abnormal ECG When compared with ECG of 21-APR-2017 14:36, Nonspecific T wave abnormality, worse in Lateral leads Confirmed by Eulalia Mandel MD ([id number]) on 04/28/2017 6:00:43 AM
[2017-04-23 06:49] LABS: HEMATOCRIT 31.2 % (42.0-52.0); HEMOGLOBIN 10.4 g/dL (14.0-18.0); MCHC 33.3 g/dL (33-37); MCV 89.9 FL (81-99); MPV 9.9 FL (7.4-10.4); RBC 3.47 XMIL (4.7-6.1)
[2017-04-23 07:00] LABS: AGAP 12; BUN 11 mg/dL (8-22); CALCIUM 8.1 mg/dL (8.8-10.2); CHLORIDE 97 mmol/L (98-107); COSMO 268; POTASSIUM 3.1 mmol/L (3.5-5.1); SODIUM 134 mmol/L (136-145); TCO2 25 mmol/L (25-35)
[2017-04-23] MEDS ORDERED: KLOR-CON PO ONE (07:04)
[2017-04-23] MEDS: ASPIRIN PO SCH (08:16)
[2017-04-23] MEDS: MIRALAX PO SCH ×3 (08:16→21:08)
[2017-04-23] MEDS: ZOFRAN IV PRN (08:31)
[2017-04-23] MEDS: NORCO-5 PO PRN (08:36)
[2017-04-23] MEDS: SODIUM CHLORIDE 0.9% INJ SCH (12:56)
[2017-04-23] MEDS: PROTONIX IV SCH (12:56)
--- NOTE | 2017-04-23 15:50 | PROGRESS NOTE ---
DATE: 04/23/2017 SUBJECTIVE: Mr. Newby reports he is doing well. No fevers. His breathing has improved. PHYSICAL EXAMINATION: Vital Signs: Afebrile. Heart rates in the 80s to 90s. His blood pressure has been somewhat variable, being in the 140s to 170s systolic. General: He is in no acute distress. Cardiovascular: He sounds to be in a regular rate and rhythm. No murmurs. He has no S3, no lower extremity edema. Chest: Exam is clear bilaterally. No increased work of breathing. Abdomen: Soft, nontender, nondistended. He has no obvious organomegaly. Skin Exam: Warm and dry throughout. PERTINENT DATA: Patient had laboratory data today, his white count was reviewed. His sodium is 134, potassium is 3.1, BUN 11, creatinine 0.9. His proBNP is 59-64. ASSESSMENT: 1. Atrial fibrillation. 2. Pneumonia. PLAN: I would recommend restarting his home medications including his lisinopril. He is not on any rate-controlling medications as of yet. I will initiate metoprolol at a dose of 50 mg b.i.d. He is already on Xarelto. Has not had any bleeding issues during this hospitalization. From an atrial fibrillation standpoint he is okay for discharge. cc: Ronaldo Elizabeth MD
--- NOTE | 2017-04-23 16:49 | PROGRESS NOTE ---
DATE: 04/23/2017 SUBJECTIVE: The patient is resting comfortably in bed and states that he feels better and wants to go home. OBJECTIVE: Vital Signs: Temperature 98.6 degrees, blood pressure 153/82, heart rate 80, respirations 19, O2 saturation 96% on nasal cannula. General: This is an elderly male, sitting at the edge of the bed, in no acute distress. Head: Normocephalic atraumatic. Heart: S1, S2. Normal. Regular rate and rhythm. Lungs: Equal air entry bilaterally. No crackles. No rales. Abdomen positive bowel sounds. Soft, nontender, nondistended. Extremities: No edema. No cyanosis. No calf tenderness. Neuro: The patient is alert and oriented x3. No focal neurologic deficits noted. LABORATORY DATA: White blood cell count 7.1, hemoglobin 10, hematocrit 31, platelets 769, 000. Sodium 134, potassium 3.1, chloride 97, CO2 of 25, BUN 11, creatinine 0.9, glucose 103. ProBNP 5,964. ASSESSMENT AND PLAN: 1. Bilateral lobe pneumonia. 2. Continue on antibiotic therapy. 3. The patient will be transitioned to oral antibiotic therapy upon discharge. 4. Mild pulmonary edema. Management as per the blocking machine tender. 5. Diffuse mediastinal adenopathy. This will need to be followed with a repeat CT once the patient's pneumonia has been completely completed. Superior mesenteric artery stenosis, aware. 6. Atrial fibrillation, status post cardioversion. 7. Diabetes mellitus, type 2. Continue on sliding scale insulin. DISPOSITION: The patient will be discharged home once cleared by the blocking machine tender. cc: Jaqui Kaur MD
[2017-04-23] MEDS: XARELTO PO SCH (17:03)
[2017-04-23] MEDS: VANCOMYCIN 1,800 MG in NS 250 ML IV SCH (17:03)
--- NOTE | 2017-04-23 18:50 | PROGRESS NOTE ---
DATE: 04/23/2017 PRESENT ILLNESS: The patient has a bibasilar pneumonia. MEDICATIONS: Currently, the patient is receiving a combination of vancomycin and Zosyn for his pneumonia. The patient has been on antibiotics for pneumonia now for 4 days. PHYSICAL EXAMINATION: Vital Signs: Temperature is 98.6 degrees, pulse 90, respirations 18, blood pressure 153/82. General: This is an ill-appearing middle-aged male who is in no acute distress. He did have a hard coughing spell near the end of the time I was examining him. Lungs: There were bibasilar rales. Cardiovascular: Regular heart rate. Abdomen: Soft and nontender. LAB AND X-RAY: Creatinine 0.9. GFR is greater than 60. Immunoglobulin G and A are normal. Sputum grew normal sharonda. Blood cultures are negative. The patient's CBC shows a white count of 7180, hemoglobin 10.4 and platelet count 169,000. IgG and IgA levels are normal. ASSESSMENT AND PLAN: The patient is having pneumonia. The plan will be to continue his current antibiotics pending final culture results. COMORBIDITIES: Include diabetes mellitus and cigarette smoking. cc: Adam Nj MD
[2017-04-23] MEDS: LOPRESSOR PO SCH (21:11)
[2017-04-24] MEDS: ZOSYN 3.375 GM/NS 3.375 GM/50 ML IVPB IV SCH ×2 (01:40→09:14)
[2017-04-24] MEDS: DUONEB (A & A) INH PRN ×3 (03:16→11:45)
[2017-04-24] MEDS: HUMALOG DOSE (PARKWAY) SUBQ SCH ×2 (06:27→11:45)
[2017-04-24 07:09] LABS: HEMATOCRIT 31.6 % (42.0-52.0); HEMOGLOBIN 10.6 g/dL (14.0-18.0); MCH 30.7 PG (27-31); MCHC 33.5 g/dL (33-37); MCV 91.6 FL (81-99); MPV 9.7 FL (7.4-10.4); RBC 3.45 XMIL (4.7-6.1)
[2017-04-24 07:28] LABS: AGAP 13; BUN 9 mg/dL (8-22); CALCIUM 8.3 mg/dL (8.8-10.2); CHLORIDE 97 mmol/L (98-107); COSMO 267; POTASSIUM 3.4 mmol/L (3.5-5.1); SODIUM 134 mmol/L (136-145); TCO2 24 mmol/L (25-35)
--- NOTE | 2017-04-24 07:40 | Diag Imaging Result Doc PS360 ---
EXAM: CHEST-2 VIEWS HISTORY: pneumonia TECHNIQUE: COMPARISON: 04/21/2017 FINDINGS: Sternal wires are present. The heart remains mildly prominent. There is increased density in the mid right lung and in the lower left lung. Increased interstitial markings in the lower lungs. I believe there are small pleural effusions. There is also right apical pleural thickening. The overall appearance is similar to that of the prior exam. IMPRESSION: Stable chest Electronically signed by Reyes Carson 04/24/2017 7:37 AM
[2017-04-24] MEDS: LOPRESSOR PO SCH (09:14)
[2017-04-24] MEDS: ASPIRIN PO SCH (09:14)
[2017-04-24] MEDS: MIRALAX PO SCH (09:14)
[2017-04-24] MEDS ORDERED: KLOR-CON PO ONE (10:30)
[2017-04-24] MEDS ORDERED: POTASSIUM CHLORIDE 20% LIQUID PO ONE ×2 (10:56→11:01)
[2017-04-24 12:18] VITALS: BP 143/74
--- NOTE | 2017-04-26 07:51 | DISCHARGE SUMMARY ---
ADMISSION DATE: 04/19/2017 DISCHARGE DATE: 04/24/2017 PRIMARY CARE PROVIDER: Shonna Giordano MD. FINAL DISCHARGE DIAGNOSES: 1. Atrial fibrillation status post cardioversion. 2. Bilateral lobe pneumonia. 3. Mild pulmonary edema. 4. Diffuse mediastinal adenopathy. 5. Superior mesenteric artery stenosis. 6. Diabetes mellitus type 2. 7. Hypertension. CONSULTATIONS REQUESTED DURING THIS HOSPITAL STAY: 1. Cardiology consultation with Dr. Benjamin. 2. ID consultation with Dr. Adam Nj. PROCEDURES PERFORMED DURING THIS HOSPITAL STAY: ANA MARÍA with cardioversion performed on April 20, 2017. HOSPITAL COURSE: Mr. Newby is a 66-year-old male with a history of multiple medical problems, who presented to the ER at [place] in atrial fibrillation with rapid ventricular response. Cardiology was consulted and the patient was set up for a ANA MARÍA with cardioversion the following day. This was performed and the patient was then transferred to [facility]. A CT of the chest was done that revealed bilateral lower lobe infiltrates consistent with pneumonia, as well as diffuse mediastinal adenopathy. The patient was started on IV antibiotic therapy and ID was consulted for further antibiotic recommendations. The patient responded well to antibiotic therapy and was ultimately transitioned to oral antibiotic therapy. The patient remained in sinus rhythm. Following the ANA MARÍA with cardioversion. The patient continued to improve clinically and was cleared for discharge home on April 24, 2017. DISCHARGE MEDICATIONS: 1. Augmentin 875/125 one tablet oral every 12 hours. 2. Xarelto 20 mg p.o. with supper. 3. Aspirin 81 mg p.o. daily. 4. Metoprolol 50 mg p.o. twice a day. 5. Ranexa 1000 mg p.o. twice a day. 6. Trazodone 50 mg p.o. at bedtime p.r.n. 7. NovoLog 20 units subcutaneous 3 times a day before meals. 8. Protonix 40 mg p.o. daily. 9. Albuterol inhaler q.4 p.r.n. for shortness of breath. 10. Lisinopril 5 mg p.o. at bedtime. 11. Ferrous sulfate 325 mg p.o. twice a day. 12. Zocor 20 mg p.o. at bedtime. 13. Lasix 40 mg p.o. daily. 14. Zofran 4 mg p.o. daily p.r.n. 15. Vitamin D2 88695 units oral once a week. 16. Potassium chloride 10 mEq oral daily. 17. Lantus 65 units subcutaneous at bedtime. 18. Gabapentin 300 mg p.o. every 6 hours p.r.n. DISCHARGE DIET: An 1800 ADA, low-sodium, low-cholesterol diet. ACTIVITY: As tolerated. FOLLOW-UP INSTRUCTIONS: The patient will need to follow up with Dr. Adam Nj as scheduled by his clinic. The patient will need to follow up with Shonna Giordano MD in 1-2 weeks. The patient will need a repeat CT of the chest to assess the diffuse mediastinal adenopathy seen on CT. The patient will need to follow up with Dr. Benjamin on May 18, 2017 at 9:15 a.m. cc: MD Shonna Blount MD
== END 2017-04-24 13:47 | disposition home or self-care (01) ==
LOC: P.ED 12:03 → SUATTDRO 12:53 → P.ICU 12:53 → 3N 04-21 09:59
PROVIDERS: ATTEND Internal Medicine